=== PATIENT | male | born 1995 | race American Indian/Alaskan Native ===

== ENCOUNTER 2020-04-20 04:58 | Inpatient (IN) | payer OTHER ==
[2020-04-20] MEDS ORDERED: SODIUM CHLORIDE 0.9% 1000 ML 1,000 ML IV ONE (08:53)
[2020-04-20] MEDS ORDERED: ONDANSETRON 4 MG/2 ML INJ IV ONE (08:53)
[2020-04-20] MEDS ORDERED: MORPHINE 4 MG/1 ML INJ IV ONE (08:53)
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
[2020-04-20 09:17] LABS: Basophils % (Auto) 0.3 % (0.0-1.8); Eosinophils % (Auto) 0.2 % (0.0-4.3); Hematocrit 50.2 % (35.5-45.6); Hemoglobin 17.2 gm/dl (11.8-15.2); Lymphocytes # (Auto) 1.4 K/mm3 (1.2-5.4); Lymphocytes % (Auto) 13.5 % (13.4-35.0); Mean Corpuscular HGB Conc 34 % (32-34); Mean Corpuscular Volume 91 fl (84-94); Monocytes # (Auto) 0.6 K/mm3 (0.0-0.8); Monocytes % (Auto) 5.9 % (0.0-7.3); Platelet Count 345 K/mm3 (140-440)
[2020-04-20 09:34] LABS: Alanine Aminotransferase 14 units/L (7-56); Albumin 5.3 g/dL (3.9-5); BUN/Creatinine Ratio 9; Blood Urea Nitrogen 9 mg/dL (9-20); Calcium 10.6 mg/dL (8.4-10.2); Hemolysis Index 14
--- NOTE | 2020-04-20 10:09 | Cat Scan Report ---
CT ABDOMEN AND PELVIS WITH CONTRAST INDICATION / CLINICAL INFORMATION: Nausea with vomiting for 2 days. TECHNIQUE: Axial CT images were obtained through the abdomen and pelvis after 100 cc Omnipaque [address] scans at this location are performed using CT dose reduction for ALARA by means of automated exposure control. COMPARISON: None available. FINDINGS: LOWER CHEST: No significant abnormality. LIVER: No significant abnormality. GALLBLADDER: No significant abnormality. BILE DUCTS: No significant abnormality. PANCREAS: No significant abnormality. SPLEEN: No significant abnormality. ADRENALS: No significant abnormality. RIGHT KIDNEY / URETER: No significant abnormality. LEFT KIDNEY / URETER: No significant abnormality. STOMACH / SMALL BOWEL: No significant abnormality of the stomach. There is moderate small bowel dilat ation with a suspected transition point along the proximal to mid ileum to the right of midline in th e pelvis. Unremarkable appearing postoperative changes are noted along the jejunum and ileum. COLON: No significant abnormality. APPENDIX: No significant abnormality. PERITONEUM: Trace free fluid along the pelvis. No free air. No fluid collection. LYMPH NODES: No significant adenopathy. AORTA / ARTERIES: No significant abnormality. IVC / VEINS: No significant abnormality. URINARY BLADDER: No significant abnormality. REPRODUCTIVE ORGANS: No significant abnormality. ADDITIONAL FINDINGS: None. SKELETAL SYSTEM: No significant abnormality. IMPRESSION: Small bowel obstruction as described above with a probable transition point in the pelvis and no asso ciated complication. Signer Name: Jatin Cordoba MD Signed: 04/20/2020 10:04 AM Workstation Name: [id number]
[2020-04-20] MEDS ORDERED: HYDROmorphone 1 MG/1 ML INJ IV ONE (10:28)
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
[2020-04-20] MEDS ORDERED: ACETAMINOPHEN 325 MG TAB PO PRN (11:16)
[2020-04-20] MEDS ORDERED: NALOXONE 0.4 MG/1 ML INJ IV PRN (11:16)
[2020-04-20] MEDS ORDERED: ALBUTEROL 2.5 MG/3 ML NEBU IH PRN (11:16)
[2020-04-20] MEDS ORDERED: LORazepam 2 MG/ML VIAL IV PRN ×2 (11:30)
[2020-04-20] MEDS ORDERED: HYDROmorphone 1 MG/1 ML INJ ONE ×3 (11:31→23:07)
[2020-04-20] MEDS ORDERED: LORazepam 2 MG/ML VIAL ONE (11:36)
[2020-04-20] MEDS ORDERED: THIAMINE 100 MG, FOLIC ACID 1 MG, MULTIPLE VITAMIN INJ, ADULT 10 ML in SODIUM CHLORIDE ... IV ONE (12:00)
[2020-04-20] MEDS ORDERED: ONDANSETRON 4 MG/2 ML INJ ONE ×2 (12:10→20:20)
[2020-04-20] MEDS: ONDANSETRON 4 MG/2 ML INJ IV PRN (12:22)
[2020-04-20] MEDS: MORPHINE 2 MG/1 ML INJ IV PRN ×2 (12:26→20:24)
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
[2020-04-20] MEDS ORDERED: MORPHINE 2 MG/1 ML INJ ONE (20:20)
[2020-04-20] MEDS: HYDROmorphone 1 MG/1 ML INJ IV PRN ×2 (20:32→23:30)
[2020-04-21] MEDS: MORPHINE 2 MG/1 ML INJ IV PRN ×2 (00:57→05:08)
[2020-04-21] MEDS: ONDANSETRON 4 MG/2 ML INJ IV PRN ×2 (01:13→09:22)
[2020-04-21] MEDS: SODIUM CHLORIDE 0.9% 1000 ML 1,000 ML IV SCH ×2 (05:11→09:22)
[2020-04-21 06:09] LABS: Basophils % (Auto) 0.2 % (0.0-1.8); Eosinophils # (Auto) 0.1 K/mm3 (0.0-0.4); Eosinophils % (Auto) 0.9 % (0.0-4.3); Hematocrit 46.1 % (35.5-45.6); Hemoglobin 15.4 gm/dl (11.8-15.2); Lymphocytes # (Auto) 2.1 K/mm3 (1.2-5.4); Lymphocytes % (Auto) 30.8 % (13.4-35.0); Mean Corpuscular HGB Conc 34 % (32-34); Mean Corpuscular Volume 94 fl (84-94); Monocytes # (Auto) 0.7 K/mm3 (0.0-0.8); Monocytes % (Auto) 9.8 % (0.0-7.3); Platelet Count 299 K/mm3 (140-440); Red Blood Count 4.92 M/mm3 (3.65-5.03); Red Cell Distribution Width 14.1 % (13.2-15.2)
[2020-04-21 06:28] LABS: Alanine Aminotransferase 10 units/L (7-56); Albumin 4.1 g/dL (3.9-5); BUN/Creatinine Ratio 9; Blood Urea Nitrogen 11 mg/dL (9-20); Calcium 8.9 mg/dL (8.4-10.2); Hemolysis Index 9
[2020-04-21] MEDS: HYDROmorphone 1 MG/1 ML INJ IV PRN ×2 (08:20→11:59)
--- NOTE | 2020-04-21 08:52 | XRay Report ---
ACUTE ABDOMINAL SERIES INDICATION / CLINICAL INFORMATION: SBO. COMPARISON: CT of the abdomen and pelvis performed yesterday. FINDINGS: Upright and supine views of the abdomen demonstrate a nasogastric tube with the tip overlying the exp ected location of the duodenal bulb/proximal duodenum. Dilated small bowel loops have shown marked im provement. There is a single mildly dilated small bowel loop in the left mid abdomen. There is mild g as scattered throughout the colon. There is no evidence of free air or mass effect. There is contrast in the urinary bladder. The accompanying chest radiograph demonstrates a normal heart size and clear lungs. IMPRESSION: Marked improvement in small bowel obstruction since yesterday. Signer Name: Enrique Braxton MD Signed: 04/21/2020 8:47 AM Workstation Name: [id number]
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
--- NOTE | 2020-04-21 11:40 | Consultation ---
History of Present Illness - Reason for Consult Consult date: 04/21/20 Reason for consult: depression - History of Present Psychiatric Illness The patient's medical record was reviewed and the patient's progress was discussed with the medical staff. Dalton Cardoso is a 24y/o male patient who states he was admitted into the hospital for "real bad stomach problems." The patient is speaking on the phone with someone as I enter the room. He is a/o x 3. He is calm, cooperative, and pleasant. He smiles periodically during the interview. He was unsure why psych was consulted. He laughs and says, "psych?, for what." The patient says he has a history of ADHD and Bipolar. He says, "but I haven't been on medication or seen a psychiatrist in years.' He denies SI/HI at present or ever having thoughts or an attempt. He denies any hospital admissions. The patient says he does "weed" but denies any other illicit drug use, alcohol or nicotine. He says his mood is "cool." The patient says he sleeps "okay." PAST PSYCHIATRIC HISTORY Diagnoses: ADHD/Bipolar Suicide attempts or Self-harm behavior: Denies Prior psychiatric hospitalizations: Denies Substance Abuse history: Denies Previous psychiatric medications tried: Denies Outpatient treatment: Denies PAST MEDICAL HISTORY: Stomach problems Family Psychiatric History: None reported or documented SOCIAL HISTORY Marital Status: Single Living Arrangements: "with my girl" Employment Status: Unemployed Access to guns/weapons: Denies Education: 13th grade History of Abuse: Denies Legal History: Denies REVIEW OF SYSTEMS Constitutional: Negative for weight loss ENT: Negative for stridor Respiratory: Negative for cough or hemoptysis All other systems reviewed and are negative MENTAL STATUS EXAMINATION General Appearance: Dressed appropriately Behavior: Calm, cooperative, pleasant. Smiles Mood: "cool" Affect and affective range: Congruent with stated mood Speech: Normal tone and pace Thought Process: Goal directed Thought content: Suicidal Ideation: Denies Homicidal Ideation: Denies Hallucination: Denies Delusions: None elicited Insight/Judgment: Limited Memory/Cognition: Limited ASSESSMENT Bipolar Disorder, remission RECOMMENDATIONS MEDICATIONS No medications at this time. Risks, benefits and alternatives of medications discussed with the patient, questions answered and consent obtained from patient. PSYCHOTHERAPY: Supportive psychotherapy provided MEDICAL: Per primary team DELIRIUM PRECAUTIONS: Please re-orient patient frequently, keep lights on during the day, and minimize benzodiazepines and opiates as these medications could worsen patient's confusion. PYTHON PROGRAMMER: per medical team DISPOSITION: The patient does not meet the requirement for acute inpatient psychiatric treatment. She may discharge one medically clear. Follow up with outpatient psych as needed or primary in 7 to 14 days Will sign off Thank you for the consult. Please contact with any questions and/or concerns. Medications and Allergies Allergies Allergy/AdvReac Type Severity Reaction Status Date / Time No Known Allergies Allergy Unverified 04/20/20 20:16 Home Medications Medication Instructions Recorded Confirmed Last Taken Type No Known Home Medications [No 04/20/20 04/20/20 Unknown History Reported Home Medications] Active Meds: Active Medications Acetaminophen (Tylenol) 650 mg PO Q4H PRN PRN Reason: Pain MILD(1-3)/Fever >100.5/FELIZ Albuterol (Proventil) 2.5 mg IH Q3HRT PRN PRN Reason: Shortness Of Breath Famotidine (Pepcid) 20 mg IV QDAY BETH Hydromorphone HCl (Dilaudid) 0.5 mg IV Q3H PRN PRN Reason: Pain , Severe (7-10) Last Admin: 04/21/20 08:20 Dose: 0.5 mg Documented by: Sodium Chloride (Nacl 0.9% 1000 Ml) 1,000 mls @ 125 mls/hr IV DIRECT BETH Last Admin: 04/21/20 09:22 Dose: 125 mls/hr Documented by: Potassium Chloride (Kcl 10meq/100ml) 10 meq in 100 mls @ 100 mls/hr IV Q1H BETH Stop: 04/21/20 13:59 Lorazepam (Ativan) 2 mg IV Q1H PRN PRN Reason: CIWA-Ar 8-15 Last Admin: 04/20/20 11:41 Dose: 2 mg Documented by: Lorazepam (Ativan) 4 mg IV Q1H PRN PRN Reason: CIWA-Ar 16-25 Morphine Sulfate (Morphine) 2 mg IV Q4H PRN PRN Reason: Pain, Moderate (4-6) Last Admin: 04/21/20 05:08 Dose: 2 mg Documented by: Naloxone HCl (Naloxone) 0.1 mg IV Q2MIN PRN PRN Reason: Res Rate </= 8 or 02 SAT < 92% Ondansetron HCl (Zofran) 4 mg IV Q8H PRN PRN Reason: Nausea And Vomiting Last Admin: 04/21/20 09:22 Dose: 4 mg Documented by: Sodium Chloride (Sodium Chloride Flush Syringe 10 Ml) 10 ml IV BID BETH Last Admin: 04/21/20 09:22 Dose: 10 ml Documented by: Sodium Chloride (Sodium Chloride Flush Syringe 10 Ml) 10 ml IV PRN PRN PRN Reason: LINE FLUSH Mental Status Exam - Vital signs Last Vital Signs Temp 98.6 F 04/21/20 07:45 Pulse 54 L 04/21/20 08:35 Resp 20 04/21/20 07:45 BP 86/59 04/21/20 07:45 Pulse Ox 98 04/21/20 07:45 Results Result Diagrams: 04/21/20 04:53 04/21/20 04:53 Abnormal lab results 04/21/20 04/21/20 Range/Units 04:53 04:53 Hgb 15.4 H (11.8-15.2) gm/dl Hct 46.1 H (35.5-45.6) % [place] % (Auto) 9.8 H (0.0-7.3) % Potassium 3.3 L (3.6-5.0) mmol/L All other labs normal.
[2020-04-21] MEDS: POTASSIUM CHLORIDE 10 MEQ 10 MEQ/100 ML BAG IV SCH ×3 (11:59→14:23)
[2020-04-21 12:14] VITALS: BP 124/69
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
--- NOTE | 2020-04-21 13:09 | Progress Note ---
Assessment and Plan 24-year-old male with small bowel obstruction -resolved Patient stable. Abdominal exam is benign and he is passing flatus Obstruction series -Marked improvement in small bowel dilatation. There is air in the colon. Plan: 1. DC NGT 2. IVF 3. Start clear liquid diet 4. prn pain and nausea control 5. GI ppx 6. Replace K -will change to p.o. Okay to discharge home if tolerates liquid diet. I explained the plan to the patient and he is agreeable. Discussed with Dr. york. Thank you for this consultation. Please call with any questions or concerns. Subjective Date of service: 04/21/20 Narrative: Patient seen and examined. No acute complaints. No abdominal pain, nausea, vomiting. He is constantly asking for something to eat or drink. He states that he is consistently passing flatus. No bowel movement. Objective Vital Signs - 12hr 04/21/20 04/21/20 04/21/20 03:00 06:09 06:13 Temperature 98.3 F Pulse Rate 54 L Respiratory 20 18 Rate Blood Pressure 106/59 O2 Sat by Pulse 99 Oximetry 04/21/20 04/21/20 04/21/20 07:45 08:35 12:07 Temperature 98.6 F 98.4 F Pulse Rate 56 L 54 L 53 L Respiratory 20 20 Rate Blood Pressure 86/59 124/69 O2 Sat by Pulse 98 99 Oximetry - General physical appearance Narrative Exam: Gen.: Awake, alert, oriented 3. No apparent distress ENT: NG tube in place with light yellow drainage. Trachea midline. No lymphadenopathy. No scleral icterus or conjunctival pallor CV: S1, S2 present Respiratory: No audible wheezes Abdomen: Soft, nondistended, nontender. No rebound, rigidity, guarding Extremities: No clubbing, cyanosis, edema - Labs 04/21/20 04:53 04/21/20 04:53 Diabetes panel 04/21/20 Range/Units 04:53 Sodium 141 (137-145) mmol/L Potassium 3.3 L (3.6-5.0) mmol/L Chloride 99.5 (98-107) mmol/L Carbon Dioxide 30 (22-30) mmol/L BUN 11 (9-20) mg/dL Creatinine 1.2 (0.8-1.5) mg/dL Glucose 89 (75-100) mg/dL Calcium 8.9 D (8.4-10.2) mg/dL AST 18 (5-40) units/L ALT 10 (7-56) units/L Alkaline Phosphatase 45 (35-129) units/L Total Protein 7.8 (6.3-8.2) g/dL Albumin 4.1 (3.9-5) g/dL Calcium panel 04/21/20 Range/Units 04:53 Calcium 8.9 D (8.4-10.2) mg/dL Albumin 4.1 (3.9-5) g/dL Pituitary panel 04/21/20 Range/Units 04:53 Sodium 141 (137-145) mmol/L Potassium 3.3 L (3.6-5.0) mmol/L Chloride 99.5 (98-107) mmol/L Carbon Dioxide 30 (22-30) mmol/L BUN 11 (9-20) mg/dL Creatinine 1.2 (0.8-1.5) mg/dL Glucose 89 (75-100) mg/dL Calcium 8.9 D (8.4-10.2) mg/dL Adrenal panel 04/21/20 Range/Units 04:53 Sodium 141 (137-145) mmol/L Potassium 3.3 L (3.6-5.0) mmol/L Chloride 99.5 (98-107) mmol/L Carbon Dioxide 30 (22-30) mmol/L BUN 11 (9-20) mg/dL Creatinine 1.2 (0.8-1.5) mg/dL Glucose 89 (75-100) mg/dL Calcium 8.9 D (8.4-10.2) mg/dL Total Bilirubin 0.60 (0.1-1.2) mg/dL AST 18 (5-40) units/L ALT 10 (7-56) units/L Alkaline Phosphatase 45 (35-129) units/L Total Protein 7.8 (6.3-8.2) g/dL Albumin 4.1 (3.9-5) g/dL
[2020-04-21] MEDS ORDERED: POTASSIUM CHLORIDE ER 20 MEQ TAB PO ONE (14:00)
[2020-04-21] MEDS ORDERED: FAMOTIDINE 20 MG/2 ML INJ IV SCH (16:00)
== END 2020-04-21 14:59 | disposition home or self-care (01) | DRG 390 ==
LOC: ED 04:58 → 3A 11:16 → 4A 22:15
PROVIDERS: ADMIT Internal Medicine; ATTEND Internal Medicine
PROC: 0D9670Z Drainage of Stomach with Drainage Device, Via Natural or Artificial Opening (ICD-10-PCS; principal; 2020-04-20)
DX: K56.609 Unspecified intestinal obstruction, unspecified as to partial versus complete obstruction (principal); F10.10 Alcohol abuse, uncomplicated; E87.6 Hypokalemia; E83.52 Hypercalcemia; F31.9 Bipolar disorder, unspecified; F12.90 Cannabis use, unspecified, uncomplicated; Z90.49 Acquired absence of other specified parts of digestive tract
CPT/HCPCS: 36415; 74022; 74177; 80053; 80320; 82550; 83690; 83735; 84100; 85025; G0378; G0480; J1170; J2060; J2270; J2405; J3411; J3480; J7030; Q9967